=== PATIENT | female | born 1985 ===

== ENCOUNTER 2018-07-04 12:10 | Outpatient (CLI) | payer SELFPAY | END 2018-07-04 12:11 | disposition home or self-care (01) | LOC: C.LAB 12:10 | DX: N92.6 Irregular menstruation, unspecified (principal) ==

== ENCOUNTER 2018-07-09 13:54 | Outpatient (CLI) | payer SELFPAY | END 2018-07-09 13:55 | disposition home or self-care (01) | LOC: C.USIC 13:54 ==

== ENCOUNTER 2018-07-30 09:27 | Outpatient (CLI) | payer SELFPAY | END 2018-07-30 09:28 | disposition home or self-care (01) | LOC: C.LAB 09:27 | DX: Z34.91 Encounter for supervision of normal pregnancy, unspecified, first trimester (principal) ==

== ENCOUNTER 2018-09-17 11:39 | Outpatient (CLI) | payer SELFPAY | END 2018-09-17 11:40 | disposition home or self-care (01) | LOC: C.LAB 11:39 | DX: Z34.82 Encounter for supervision of other normal pregnancy, second trimester (principal) ==